=== PATIENT | female | born 1970 | race Caucasian/White ===

== ENCOUNTER → 2018-07-22 | Outpatient (CLI) | payer OTHER | LOC: LAB 14:20 | PROVIDERS: ATTEND Pediatrics | DX: Z86.11 Personal history of tuberculosis (principal) | CPT/HCPCS: 36415; 86480 ==

== ENCOUNTER → 2018-10-01 | Outpatient (CLI) | payer OTHER | LOC: LAB 08:29 | PROVIDERS: ATTEND Pediatrics | DX: E11.9 Type 2 diabetes mellitus without complications (principal); E03.8 Other specified hypothyroidism; Z86.11 Personal history of tuberculosis | CPT/HCPCS: 36415; 83036; 84436; 84443; 86480 ==